=== PATIENT | male | born 1995 | race Caucasian/White ===

== ENCOUNTER 2017-06-06 22:05 | Emergency (ER) | payer SELFPAY ==
[2017-06-06 22:27] VITALS: BP 145/73; PULSE 73; TEMP 98.1; BMI 25.7
--- NOTE | 2017-06-06 23:04 | PDOC ---
History of Present Illness - General Chief Complaint: Ear Problem Stated Complaint: PAIN Time Seen by Provider: 06/06/17 22:56 Past History - Past Medical History Allergies/Adverse Reactions: Allergies Allergy/AdvReac Type Severity Reaction Status Date / Time No Known Allergies Allergy Verified 06/06/17 22:17 Home Medications: Ambulatory Orders Amoxicillin - [Amoxicillin 500mg Capsule -] 500 mg PO BID #19 capsule 06/06/17 Ibuprofen 800 mg PO TID #30 tablet 06/06/17 - Suicide/Smoking/Psychosocial Hx Smoking History: Never smoked Have you smoked in the past 12 months: No Information on smoking cessation initiated: No Hx Alcohol Use: No Drug/Substance Use Hx: No *Physical Exam - Vital Signs Last Vital Signs Temp Pulse Resp BP Pulse Ox 98.1 F 73 16 145/73 98 06/06/17 22:13 06/06/17 22:13 06/06/17 22:13 06/06/17 22:13 06/06/17 22:13 *DC/Admit/Observation/Transfer Diagnosis at time of Disposition: Acute otitis media Qualifiers: Otitis media type: suppurative Laterality: left Recurrence: not specified as recurrent Spontaneous tympanic membrane rupture: without spontaneous rupture Qualified Code(s): H66.002 - Acute suppurative otitis media without spontaneous rupture of ear drum, left ear Pharyngitis Qualifiers: Pharyngitis/tonsillitis etiology: unspecified etiology Qualified Code(s): J02.9 - Acute pharyngitis, unspecified - Discharge Dispostion Disposition: HOME Condition at time of disposition: Good Admit: No - Referrals Referrals: Yosi Khanna MD [Staff Physician] - - Patient Instructions Printed Discharge Instructions: DI for Otitis Media (Middle Ear Infection)- Child, DI for Pharyngitis/Tonsillopharyngitis -- Adult Additional Instructions: You have an ear infection and strep throat. Please take the amoxicillin twice a day for 10 days. Take the entire dose of medication even if you feel better. You may take ibuprofen as needed for pain. You may take 800mg three times a day , not to exceed 3,000mg a day. Warm tea, and Cefalor drops may help your throat symptoms. Please throw away your tooth brush after you finish your medication. Follow up with Dr. Khanna in one week. Return to the ED if you have worsening pain, fevers, difficulty swallowing, excess drooling, difficulty breathing or have any change sin your symptoms. Usted tiene yao infeccin en el odo y estreptococo en la garganta. Por favor tome la amoxicilina dos veces al da heather 10 bagley. [place] toda la dosis de medicamento, incluso si se siente mejor. Puede melody ibuprofeno segn sea necesario para el dolor. Puede melody 800 mg meet veces al da, sin exceder los 3.000 mg por da. El t caliente y las gotas de Cefalor pueden ayudar a aliviar los sntomas de la garganta. Por favor, tire marsh cepillo de dientes despus de terminar marsh medicamento. William un seguimiento con el Dr. Khanna en yao semana. Regrese al departamento de emergencias si tiene un empeoramiento del dolor, fiebre, dificultad para tragar, exceso de babeo, dificultad para respirar o cualquier cambio en pina sntomas. Print Language: CROATIAN - Post Discharge Activity Forms/Work/School Notes: Back to Work
[2017-06-06] MEDS ORDERED: AMOXICILLIN 500 MG CAPSULE (FP) PO ONE (23:47)
[2017-06-06] MEDS ORDERED: IBUPROFEN 400 MG TABLET (FP) PO ONE ×2 (23:47→23:59)
[2017-06-06] MEDS ORDERED: AMOXICILLIN 500 MG CAPSULE (FP) ONE (23:59)
== END 2017-06-07 00:07 | disposition home or self-care (01) ==
LOC: JER 22:05
DX: H66.002 Acute suppurative otitis media without spontaneous rupture of ear drum, left ear (principal); J02.9 Acute pharyngitis, unspecified
CPT/HCPCS: 99282-25

== ENCOUNTER 2017-07-28 17:33 | Emergency (ER) | payer SELFPAY ==
[2017-07-28 17:47] VITALS: BP 140/81; PULSE 94; BMI 22.6
--- NOTE | 2017-07-28 17:50 | PDOC ---
Rapid Medical Evaluation Chief Complaint: Sore Throat Time Seen by Provider: 07/28/17 17:43 Medical Evaluation: Allergies Allergy/AdvReac Type Severity Reaction Status Date / Time No Known Allergies Allergy Verified 06/06/17 22:17 Vital Signs Temp Pulse Resp BP Pulse Ox 102.1 F H 94 H 18 140/81 97 07/28/17 17:45 07/28/17 17:45 07/28/17 17:45 07/28/17 17:45 07/28/17 17:45 07/28/17 17:49 The patient presents with a chief complaint of: [Fever, sore throat, chills ] I have performed a brief in-person evaluation of this patient. Pertinent physical exam findings: vss, [Lungs clear, tonsils are erythematous, large, no exudates. ] I have ordered the following: [Rapid strep.] The patient will proceed to the ED for further evaluation. 07/28/17 17:57 Discharge Disposition - Diagnosis Fever, Sore throat - Referrals - Patient Instructions - Post Discharge Activity
[2017-07-28] MEDS ORDERED: IBUPROFEN 600 MG TABLET (FP) PO ONE ×2 (18:01→18:58)
--- NOTE | 2017-07-28 19:23 | PDOC ---
History of Present Illness - General Chief Complaint: Sore Throat Stated Complaint: COUGHING/PAIN Time Seen by Provider: 07/28/17 17:43 History Source: Patient Exam Limitations: No Limitations - History of Present Illness Initial Comments: 07/28/17 19:17 This is a 21-year-old male without significant past medical history who presents emergency Department with 2 days fevers, chills, headaches, fatigue, body aches, dry cough, sore throat. Patient states he works in construction and 2 of his coworkers have been experiencing similar symptoms and told him they have influenza. Patient denies chest pain, shortness of breath, abdominal pain, nausea, vomiting, dizziness. Past History - Past Medical History Allergies/Adverse Reactions: Allergies Allergy/AdvReac Type Severity Reaction Status Date / Time No Known Allergies Allergy Verified 06/06/17 22:17 Home Medications: Ambulatory Orders Oseltamivir Phosphate [Tamiflu -] 75 mg PO BID #10 capsule 07/28/17 COPD: No Other medical history: Patient denies medical hx - Surgical History Appendectomy: Yes - Immunization History Immunization Up to Date: Yes - Suicide/Smoking/Psychosocial Hx Smoking History: Never smoked Have you smoked in the past 12 months: No Hx Alcohol Use: No Drug/Substance Use Hx: No Substance Use Type: None Review of Systems - Review of Systems Able to Perform ROS?: Yes Is the patient limited Nicaraguan proficient: No Constitutional: Yes: See HPI HEENTM: Yes: See HPI Respiratory: Yes: See HPI Cardiac (ROS): No: Symptoms Reported ABD/GI: No: Symptoms Reported : No: Symptoms Reported Musculoskeletal: Yes: See HPI Integumentary: No: Symptoms Reported Neurological: No: Symptoms reported *Physical Exam - Vital Signs Last Vital Signs Temp Pulse Resp BP Pulse Ox 102.1 F H 94 H 18 140/81 97 07/28/17 17:45 07/28/17 17:45 07/28/17 17:45 07/28/17 17:45 07/28/17 17:45 - Physical Exam General Appearance: Yes: Appropriately Dressed. No: Apparent Distress HEENT: positive: Pharyngeal Erythema, Tonsillar Erythema, Rhinorrhea. negative : Muffled/Hoarse voice, Tonsillar Exudate, Nasal Congestion, Sinus Tenderness Neck: positive: Trachea midline Respiratory/Chest: positive: Lungs Clear, Normal Breath Sounds. negative: Respiratory Distress, Accessory Muscle Use Cardiovascular: positive: Regular Rhythm, Regular Rate. negative: Murmur Integumentary: positive: Normal Color, Dry, Warm Neurologic: positive: Fully Oriented, Alert, Normal Response, Motor Strength 10/18 ED Treatment Course - ADDITIONAL ORDERS Additional order review: 07/28/17 17:52 Group A Strep Rapid Antigen - Final Throat - Medications Given in the ED: ED Medications Discontinued Medications Generic Name Dose Route Start Last Admin Trade Name Freq PRN Reason Stop Dose Admin Ibuprofen 600 mg 07/28/17 18:01 07/28/17 18:59 Motrin - PO 07/28/17 18:02 600 mg ONCE ONE Administration Medical Decision Making - Medical Decision Making 07/28/17 19:20 A/P: 21-year-old male with 2 days headaches, fevers, chills, sore throat Pharyngeal erythema noted. No exudates present. Copious clear rhinorrhea noted No cervical lymphadenopathy present Lungs clear to auscultation bilaterally Rapid strep testing done in rapid medical evaluation was negative for group A strep Diagnosis influenza Tamiflu 75 twice a day start as an outpatient Patient instructed to avoid is 1-year-old daughter navicular minutes healthy as possible. Patient instructed to call the child's trim setter the child certainly exhibit similar symptoms. *DC/Admit/Observation/Transfer Diagnosis at time of Disposition: Sore throat, Influenza Fever Qualifiers: Fever type: due to other condition Qualified Code(s): R50.81 - Fever presenting with conditions classified elsewhere - Discharge Dispostion Disposition: HOME Condition at time of disposition: Stable Admit: No - Prescriptions Prescriptions: Oseltamivir Phosphate [Tamiflu -] 75 mg PO BID #10 capsule - Referrals - Patient Instructions Additional Instructions: Rest, drink lots of fluids: Teas, water, soups, Pedialyte Saltwater gargles Steamy showers/seem to face break up mucus Avoid contact with others until fevers and cough resolved Lots of handwashing and good hygiene Continue [id number] medications for symptomatic relief Tylenol or Motrin for fever and pain Tamiflu 75mg twice a aday for 5 days Followup with private physician in one to 2 days as needed Return to emergency department for worsened symptoms, fevers, dehydration Descjessicaa, marybeth muchos lquidos: ts, agua, sopas, Pedialyte Grgaras de agua salada Las duchas con agua parecen romper la mucosidad Evite el contacto con otras personas hasta que se resuelvan las fiebres y la tos Mucho lavado de shun y buena higiene Continuar tomando medicamentos sin receta para aliviar los sntomas Tylenol o Motrin para la fiebre y el dolor Tamiflu 75 mg dos veces al da heather 5 bagley Seguimiento con un mdico privado en guillermo o dos bagley segn sea necesario Regrese al departamento de emergencias por sntomas empeorados, fiebre, deshidratacin - Post Discharge Activity Forms/Work/School Notes: Back to Work
[2017-07-28 19:28] VITALS: TEMP 100
== END 2017-07-28 19:29 | disposition home or self-care (01) ==
LOC: JERFT 17:33
DX: J11.1 Influenza due to unidentified influenza virus with other respiratory manifestations (principal)
CPT/HCPCS: 87070; 87430; 99281-25

== ENCOUNTER 2018-10-14 03:10 | Emergency (ER) | payer SELFPAY ==
[2018-10-14 03:36] VITALS: BP 124/83; PULSE 55; TEMP 98; BMI 25.7
[2018-10-14] MEDS ORDERED: IBUPROFEN 600 MG TABLET (FP) PO ONE ×2 (03:59→05:21)
[2018-10-14] MEDS ORDERED: AMOX TR/POT CLAV 875MG/125MG TABLETS (FP) PO ONE (04:00)
--- NOTE | 2018-10-14 04:02 | PDOC ---
History of Present Illness <Hermila Frances - Last Filed: 10/14/18 04:33> - General History Source: Patient - History of Present Illness Initial Comments: 10/14/18 03:57 22 year old male with b/l ear pain x 1 week. last week had uri symptoms and fever. denies fever today. no PMHX <Fide Nieto - Last Filed: 10/15/18 20:52> - General Chief Complaint: Ear Problem Stated Complaint: EAR PAIN Time Seen by Provider: 10/14/18 03:56 Past History <Hermila Frances - Last Filed: 10/14/18 04:33> - Past Medical History COPD: No - Surgical History Appendectomy: Yes - Immunization History Immunization Up to Date: Yes - Suicide/Smoking/Psychosocial Hx Smoking History: Never smoked Have you smoked in the past 12 months: No Information on smoking cessation initiated: No Hx Alcohol Use: Yes Drug/Substance Use Hx: No Substance Use Type: None <Fide Nieto - Last Filed: 10/15/18 20:52> - Past Medical History Allergies/Adverse Reactions: Allergies Allergy/AdvReac Type Severity Reaction Status Date / Time No Known Allergies Allergy Verified 10/14/18 03:36 Home Medications: Ambulatory Orders Oseltamivir Phosphate [Tamiflu -] 75 mg PO BID #10 capsule 07/28/17 Amoxicillin/Potassium Clav [Augmentin 875-125 Tablet] 1 each PO BID #20 tablet 10/14/18 Ibuprofen 600 mg PO QID PRN #20 tablet 10/14/18 Review of Systems - Review of Systems Able to Perform ROS?: Yes Is the patient limited Tajik proficient: No HEENTM: Yes: Ear Pain, Nose Congestion. No: Throat Pain Respiratory: No: Symptoms reported, See HPI, Cough, Orthopnea, Shortness of Breath, SOB with Exertion, SOB at Rest, Stridor, Wheezing, Productive cough, Hemoptysis, Other Cardiac (ROS): No: Symptoms Reported, See HPI, Chest Pain, Edema, Irregular Heart Rate, Lightheadedness, Palpitations, Syncope, Chest Tightness, Other <Fide Nieto - Last Filed: 10/15/18 20:52> *Physical Exam - Vital Signs Last Vital Signs Temp Pulse Resp BP Pulse Ox 98 F 55 L 17 124/83 100 10/14/18 03:10 10/14/18 03:10 10/14/18 03:10 10/14/18 03:10 10/14/18 03:10 <AldokeerthiHermila ratliff - Last Filed: 10/14/18 04:33> - Vital Signs Last Vital Signs Temp Pulse Resp BP Pulse Ox 98 F 55 L 17 124/83 100 10/14/18 03:10 10/14/18 03:10 10/14/18 03:10 10/14/18 03:10 10/14/18 03:10 - Physical Exam General Appearance: Yes: Appropriately Dressed HEENT: positive: Other (bilateral otitis media with dullness and erythema. Landmarks not visual) Neck: negative: Lymphadenopathy (R), Lymphadenopathy (L) Respiratory/Chest: positive: Lungs Clear, Normal Breath Sounds Integumentary: positive: Normal Color, Dry, Warm Neurologic: positive: Fully Oriented, Alert, Normal Mood/Affect <Fide Nieto - Last Filed: 10/15/18 20:52> Medical Decision Making - Medical Decision Making 10/14/18 03:58 A: ear pain P: augmentin outpatient ENT follow up discussed with patient. <Fide Nieto - Last Filed: 10/15/18 20:52> *DC/Admit/Observation/Transfer <Hermila Frances - Last Filed: 10/14/18 04:33> <Fide Nieto - Last Filed: 10/15/18 20:52> Diagnosis at time of Disposition: Acute otitis media Qualifiers: Otitis media type: suppurative Laterality: bilateral Recurrence: not specified as recurrent Spontaneous tympanic membrane rupture: with spontaneous rupture Qualified Code(s): H66.013 - Acute suppurative otitis media with spontaneous rupture of ear drum, bilateral - Discharge Dispostion Disposition: HOME Condition at time of disposition: Fair - Prescriptions Prescriptions: Amoxicillin/Potassium Clav [Augmentin 875-125 Tablet] 1 each PO BID #20 tablet Ibuprofen 600 mg PO QID PRN #20 tablet PRN Reason: Pain - Referrals Referrals: [facility] [Outside] - Call tomorrow - Patient Instructions Printed Discharge Instructions: Middle Ear Infection Additional Instructions: Take ibuprofen every 6 hours as needed for pain Take Tylenol every 4-6 hours as needed for pain Take Augmentin as prescribed twice daily Follow-up with your doctor as soon as possible. - Post Discharge Activity Forms/Work/School Notes: Back to Work
[2018-10-14] MEDS ORDERED: AMOX TR/POT CLAV 875MG/125MG TABLETS (FP) ONE (05:21)
== END 2018-10-14 05:33 | disposition home or self-care (01) ==
LOC: JER 03:10
DX: H66.013 Acute suppurative otitis media with spontaneous rupture of ear drum, bilateral (principal)
CPT/HCPCS: 99281-25

== ENCOUNTER 2019-12-19 11:55 | Emergency (ER) | payer OTHER ==
[2019-12-19 12:00] VITALS: BP 122/75; PULSE 74; TEMP 97.7; BMI 26.3
[2019-12-19] MEDS ORDERED: diphenhydrAMINE HCL 25 MG CAPSULE (FP) PO ONE ×2 (12:00→12:06)
[2019-12-19] MEDS ORDERED: DEXAMETHASONE SOD PHOSPHATE 10 MG/1 ML VIAL IM ONE (12:00)
[2019-12-19] MEDS ORDERED: FAMOTIDINE 20 MG TABLET PO ONE (12:00)
--- NOTE | 2019-12-19 12:00 | PDOC ---
Rapid Medical Evaluation Chief Complaint: Rash Time Seen by Provider: 12/19/19 11:56 Medical Evaluation: Allergies Allergy/AdvReac Type Severity Reaction Status Date / Time No Known Allergies Allergy Verified 10/14/18 03:36 12/19/19 11:57 I have performed a brief in-person evaluation of this patient. The patient presents with a chief complaint of: hives to b/l forearms and lower legs since yesterday of unknown etiology. pt works as a contruction worker outside. Denies SOB ,difficulty breathing, tongue or lip swelling Pertinent physical exam findings:. diffused urticarial rash to plantar aspect b/l forearms and mccoy of b/l lower leg. no open wounds, afebrile I have ordered the following: Decadron, benadryl, pepcid The patient will proceed to the ED for further evaluation. Discharge Disposition - Diagnosis Allergic dermatitis - Discharge Dispostion Condition at time of disposition: Stable - Referrals - Patient Instructions - Post Discharge Activity
[2019-12-19] MEDS ORDERED: DEXAMETHASONE SOD PHOSPHATE 10 MG/1 ML VIAL ONE (12:05)
[2019-12-19] MEDS ORDERED: FAMOTIDINE 20 MG TABLET ONE (12:06)
--- NOTE | 2019-12-19 12:22 | PDOC ---
History of Present Illness - General Chief Complaint: Rash Stated Complaint: ALLERGY Time Seen by Provider: 12/19/19 11:56 History Source: Patient Exam Limitations: No Limitations - History of Present Illness Initial Comments: 12/19/19 12:25 HISTORY OF PRESENT ILLNESS: 24-year-old male denies medical history presents emergency department for evaluation of rash to upper and lower extremities starting yesterday. Patient reports the rash is mildly pruritic and is concerned that is present on bilateral palms. Patient reports he was in a park yesterday celebrating 17 December and was running around the area. Patient does not remember touching any strange plants while at the park. Patient reports he is sexually active with one partner over the past 3 years and denies any urinary symptoms. No recent travel or sick contacts. PAST MEDICAL HISTORY: Denies past medical history SURGICAL HISTORY: Denies ALLERGIES: No known drug allergies REVIEW OF SYSTEMS General/Constitutional: Denies fever or chills. Denies weakness, weight change. HEENT: Denies change in vision. Denies ear pain or discharge. Denies sore throat. Cardiovascular: Denies chest pain or shortness of breath. Respiratory: Denies cough, wheezing, or hemoptysis. Gastrointestinal: Denies nausea, vomiting, diarrhea or constipation. Denies rectal bleeding. Genitourinary: Denies dysuria, frequency, or change in urination. Musculoskeletal: Denies joint or muscle swelling or pain. Denies neck or back pain. Skin and breasts: See HPI Neurologic: Denies headache, vertigo, loss of consciousness, or loss of sensati on. Psychiatric: Denies depression or anxiety. Endocrine: Denies increased thirst. Denies abnormal weight change. Hematologic/Lymphatic: Denies anemia, easy bleeding, or history of blood clots. Allergic/Immunologic: Denies hives or skin allergy. Denies latex allergy. PHYSICAL EXAM General Appearance: Well-appearing, appropriately dressed. No apparent distress, no intoxication. Integumentary: Erythematous blanchable pruritic maculopapular rash with poorly defined borders to palms bilaterally, dorsum of hands bilaterally, bilateral forearms along the volar and dorsal surfaces, bilateral lower legs more prominent on the anterior aspects. No lesions present where clothing touches the body. Neurologic: milk vendor II-XII intact. Fully oriented, alert. Appropriate mood/affect. Motor strength 5/5. No appreciable EOM palsy, facial droop or sensory deficit. 12/19/19 12:28 Past History - Medical History Allergies/Adverse Reactions: Allergies Allergy/AdvReac Type Severity Reaction Status Date / Time No Known Allergies Allergy Verified 12/19/19 11:59 Home Medications: Ambulatory Orders Oseltamivir Phosphate [Tamiflu -] 75 mg PO BID #10 capsule 07/28/17 Amoxicillin/Potassium Clav [Augmentin 875-125 Tablet] 1 each PO BID #20 tablet 10/14/18 Ibuprofen 600 mg PO QID PRN #20 tablet 10/14/18 COPD: No - Surgical History Appendectomy: Yes - Immunization History Immunization Up to Date: Yes - Psycho-Social/Smoking History Smoking History: Never smoked Have you smoked in the past 12 months: No - Substance Abuse Hx (Audit-C & DAST Scrn) How often the patient has a drink containing alcohol: Never Score: In Men: 4 or > Positive; In Women: 3 or > Positive: 0 Screen Result (Pos requires Nsg. Audit-10AR): Negative *Physical Exam - Vital Signs Last Vital Signs Temp Pulse Resp BP Pulse Ox 97.7 F 74 18 122/75 99 12/19/19 11:56 12/19/19 11:56 12/19/19 11:56 12/19/19 11:56 12/19/19 11:56 Medical Decision Making - Medical Decision Making 12/19/19 12:23 A/P: 24-year-old male with rash to palms, forearms and lower legs Erythematous blanchable pruritic maculopapular rash with poorly defined borders to palms bilaterally, dorsum of hands bilaterally, bilateral forearms along the volar and dorsal surfaces, bilateral lower legs more prominent on the anterior aspects. No lesions present where clothing touches the body. 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 Discharge - Discharge Information Problems reviewed: Yes Clinical Impression/Diagnosis: Toxicodendron dermatitis Condition: Stable Disposition: HOME - Admission No - Follow up/Referral - Patient Discharge Instructions Additional Instructions: Place one cup of raw unflavored oats into a wax blender fast food assistant restaurant manager concrete wall grinder operator. Blend the oats into a fine powdered texture. Take these particles spread throughout bathwater Stir Until the oatmeal is thoroughly blended into the water. Soak for 15-30 minutes. Apply calamine lotion to affected areas to help relieve itching. You may take Benadryl 25 mg every 8 hours as needed for itching Return to emergency department for any worsening itching, fevers or any other concerns. Thank you very much for choosing us to provide for emergent health care needs. Coloque yao taza de tevin cruda sin sabor en un molinillo de caf procesador de alimentos licuadora. Mezcle la tevin en yao textura lilly en polvo. Toftrees estas partculas esparcidas por el agua del floyd. Revuelva hasta que la tevin se mezcle completamente con el agua. Remojar heather 15-30 minutos. Aplique locin de calamina en las reas afectadas para ayudar a aliviar la picazn. Puede melody Benadryl 25 mg cada 8 horas segn sea necesario para la picazn. Regrese al departamento de emergencias por cualquier empeoramiento de la picazn, fiebre o cualquier otra inquietud. Muchas ofelia por elegirnos para satisfacer las necesidades emergentes de atencin mdica. - Post Discharge Activity
== END 2019-12-19 12:33 | disposition home or self-care (01) ==
LOC: JERFT 11:55
PROC: 3E023NZ Introduction of Analgesics, Hypnotics, Sedatives into Muscle, Percutaneous Approach (ICD-10-PCS; principal; 2019-12-19)
DX: L23.7 Allergic contact dermatitis due to plants, except food (principal)
CPT/HCPCS: 99284-25; J1100

== ENCOUNTER 2020-06-23 17:25 | Emergency (ER) | payer OTHER ==
[2020-06-23 17:52] VITALS: BP 125/75; PULSE 67; TEMP 98.1; BMI 27.4
[2020-06-23] MEDS ORDERED: DEXAMETHASONE LIQUID 0.5 MG/5 ML PO ONE (18:39)
[2020-06-23] MEDS ORDERED: DEXAMETHASONE SOD PHOSPHATE 10 MG/1 ML VIAL ONE (19:21)
== END 2020-06-23 20:10 | disposition home or self-care (01) ==
LOC: JER 17:25
DX: J02.9 Acute pharyngitis, unspecified (principal)
CPT/HCPCS: 71046-TC-FY; 87070; 87880; 99284-25

== ENCOUNTER 2020-06-26 16:54 | Emergency (ER) | payer OTHER ==
[2020-06-26 17:03] VITALS: BMI 25.0
[2020-06-27 00:02] VITALS: BP 126/70; PULSE 68; TEMP 98.6
== END 2020-06-27 | disposition home or self-care (01) ==
LOC: JER 16:54
DX: R13.10 Dysphagia, unspecified (principal)
CPT/HCPCS: 70360-TC-FY; 99283-25

== ENCOUNTER 2020-07-03 16:48 | Emergency (ER) | payer OTHER ==
[2020-07-03 16:52] VITALS: BP 121/80; PULSE 75; TEMP 98.7; BMI 25.0
== END 2020-07-03 18:09 | disposition home or self-care (01) ==
LOC: JER 16:48 → JERFT 16:48
DX: R07.9 Chest pain, unspecified (principal)
CPT/HCPCS: 71046-TC-FY; 93005; 93010; 99284-25

== ENCOUNTER 2021-04-09 18:16 | Emergency (ER) | payer OTHER ==
[2021-04-09 18:38] VITALS: BMI 25.7
[2021-04-09] MEDS ORDERED: KETOROLAC TROMETHAMINE 30 MG/1 ML VIAL IM ONE (18:55)
[2021-04-09] MEDS ORDERED: KETOROLAC TROMETHAMINE 30 MG/1 ML VIAL ONE (18:57)
[2021-04-09 20:26] VITALS: BP 112/76; PULSE 79; TEMP 98.6
== END 2021-04-09 20:25 | disposition home or self-care (01) ==
LOC: JERFT 18:16
PROC: 3E0233Z Introduction of Anti-inflammatory into Muscle, Percutaneous Approach (ICD-10-PCS; principal; 2021-04-09)
DX: M94.0 Chondrocostal junction syndrome [Tietze] (principal)
CPT/HCPCS: 71101-TC-LT-FY; 96372; 99284-25

== ENCOUNTER 2022-12-20 17:23 | Emergency (ER) | payer OTHER ==
[2022-12-20 17:26] VITALS: BP 120/67; PULSE 65; RESP 18; TEMP 98.4; BMI 25.0
[2022-12-20] MEDS ORDERED: KETOROLAC TROMETHAMINE 30 MG/1 ML VIAL IM ONE (18:06)
[2022-12-20] MEDS ORDERED: KETOROLAC TROMETHAMINE 30 MG/1 ML VIAL ONE (18:10)
[2022-12-20] MEDS ORDERED: PENICILLIN G BENZATHINE 1,200,000 UNIT/2 ML PFS IM ONE (18:29)
== END 2022-12-20 19:46 | disposition home or self-care (01) ==
LOC: JERFT 17:23
PROC: 3E0233Z Introduction of Anti-inflammatory into Muscle, Percutaneous Approach (ICD-10-PCS; principal; 2022-12-20)
PROC: 3E02329 Introduction of Other Anti-infective into Muscle, Percutaneous Approach (ICD-10-PCS; 2022-12-20)
DX: J02.0 Streptococcal pharyngitis (principal); R13.10 Dysphagia, unspecified; Z20.822 Contact with and (suspected) exposure to COVID-19
CPT/HCPCS: 87651; 99284-25